=== PATIENT | female | born 1950 | race Caucasian/White ===

== ENCOUNTER 2024-04-11 11:07 | Emergency (ER) | payer MEDICARE ==
[~2024-04-11] VITALS: Ht 157.5 cm; Wt 69.4 kg
[2024-04-11 11:08] VITALS: BP 133/84; PULSE 79; RESP 16; TEMP 98.6; O2SAT 98
[2024-04-11 15:15] LABS: BASOPHILS % (AUTO) 0.5 % (0-1); EOSINOPHILS # (AUTO) 0.1 X10'3 (0-0.9); EOSINOPHILS % (AUTO) 1.6 % (0-6); HEMATOCRIT 36.2 % (35.0-45.0); HEMOGLOBIN 12.3 g/dl (12.0-16.0); LYMPHOCYTES # (AUTO) 1.4 X10'3 (1.1-4.8); MEAN CORPUSCULAR HEMOGLOBIN 30.8 PG (27.0-31.0); MEAN CORPUSCULAR HGB CONC 34.1 g/dL (33.0-36.5); MEAN CORPUSCULAR VOLUME 90.4 FL (78-98); MEAN PLATELET VOLUME 7.2 FL (7.4-10.4); MONOCYTES # (AUTO) 0.7 X10'3 (0-0.9); NEUTROPHILS # (AUTO) 2.6 X10'3 (1.8-7.7); NEUTROPHILS % (AUTO) 53.9 % (42-75); PLATELET COUNT 325 X10'3 (140-440); RED CELL DISTRIBUTION WIDTH 13.2 % (11.5-14.5); WHITE BLOOD COUNT 4.8 X10'3 (4.5-11.0)
[2024-04-11] MEDS: normal saline 1000ml 1,000 ML IV ONE (15:20)
[2024-04-11 15:26] LABS: ALANINE AMINOTRANSFERASE 21 U/L (12-78); ALBUMIN 3.3 G/DL (3.4-5.0); ALBUMIN/GLOBULIN RATIO 0.9 (1.1-1.5); ALKALINE PHOSPHATASE 36 IU/L (46-116); ANION GAP 6 (8-16); ASPARTATE AMINO TRANSFERASE 19 U/L (10-37); BILIRUBIN,TOTAL 0.4 MG/DL (0.1-1.0); BLOOD UREA NITROGEN 7 MG/DL (7-18); BUN/CREATININE RATIO 9.9 (10.0-20.0); C-REACTIVE PROTEIN 0.06 MG/DL (0.0-0.5); CALCIUM 8.8 MG/DL (8.5-10.1); CHLORIDE 106 MMOL/L (99-107); CREATININE 0.71 MG/DL (0.40-0.90); GLUCOSE 97 MG/DL (70-104); POTASSIUM 3.7 MMOL/L (3.5-5.1); SODIUM 139 MMOL/L (135-145); TOTAL CARBON DIOXIDE 27.5 MMOL/L (24-32); TOTAL PROTEIN 6.8 G/DL (6.4-8.2); eCRCL 54 ML/MIN; eGFR 80 ML/MIN
[2024-04-11] MEDS: ipratropium/albuterol 3ml nebule NEB STA (15:30)
[2024-04-11] MEDS ORDERED: iohexol 300mg/ml 100ml inj. ONE (16:19)
[2024-04-11 16:32] LABS: BILIRUBIN,URINE NEGATIVE (Neg); CLARITY,URINE SLIGHTLY CLOUDY (Clear); COLOR,URINE STRAW (Yellow); GLUCOSE, URINE NEGATIVE (Neg); KETONES,URINE NEGATIVE (Neg); LEUKOCYTE ESTERASE ,URINE SMALL (Neg); NITRITES, URINE NEGATIVE (Neg); OCCULT BLOOD,URINE NEGATIVE (Neg); PROTEIN,URINE NEGATIVE (Neg); UROBILINOGEN,URINE 0.2 E.U/dL (0.2-1.0)
[2024-04-11 16:33] LABS: UA COLLECTION TYPE CLN CATCH MIDSTREAM
[2024-04-11 16:53] LABS: SQUAMOUS EPITHELIAL CELL,UR FEW /LPF (FEW); TRANSITIONAL EPI CELLS,URINE FEW /HPF
[2024-04-11 16:56] LABS: BACTERIA,URINE FEW /HPF (Neg); RBC,URINE 0-2 /HPF (0-2); WBC,URINE 0-4 /HPF (0-4)
[2024-04-11] MEDS ORDERED: GUAI600T45 PO (17:02)
[2024-04-11] MEDS ORDERED: AMOX-117 PO (17:02)
[2024-04-11] MEDS ORDERED: SODI30SP3 BOTHNARES (17:02)
[2024-04-11] MEDS ORDERED: ONDA8TAB13 PO (17:03)
== END 2024-04-11 17:21 | disposition home or self-care (01) ==
LOC: ER 11:08
DX: R91.1 Solitary pulmonary nodule (principal); R05.9 Cough, unspecified; J32.9 Chronic sinusitis, unspecified; Z88.5 Allergy status to narcotic agent; Z79.899 Other long term (current) drug therapy; Z79.2 Long term (current) use of antibiotics
CPT/HCPCS: 36415; 71045; 71260; 80053; 81001; 83605; 84145; 85025; 86140; 87040; 87088; 96360; 99285; J3490; J7030; Q9967